=== PATIENT | male | born 1985 ===

== ENCOUNTER 2021-05-16 00:46 | Inpatient (IN) | payer SELFPAY ==
[2021-05-16] MEDS ORDERED: ONDANSETRON 4 MG/2 ML INJ IV ONE (01:10)
--- NOTE | 2021-05-16 01:14 | Emergency Department Report ---
ED Abdominal Pain HPI - General Chief Complaint: Abdominal Pain Stated Complaint: ABDOMINAL PAIN Time Seen by Provider: 05/16/21 01:08 Source: patient, EMS Mode of arrival: Stretcher Limitations: No Limitations - History of Present Illness Initial Comments: Patient is 35-year-old male with recent history of pancreatitis. Patient brought to the emergency room via EMS from home for evaluation of abdominal pain. Minimal epigastric with radiation to the back. Patient describes his pain as sharp. He stated that he has some nausea but no vomiting. The patient denied any fever or chills. No chest pain or shortness of breath. MD Complaint: abdominal pain -: hour(s) (2) Location: epigastric Radiation: back Migration to: no migration Severity scale (0 -10): 10 Quality: sharp Associated Symptoms: denies other symptoms - Related Data Allergies Allergy/AdvReac Type Severity Reaction Status Date / Time No Known Allergies Allergy Unverified 05/16/21 01:25 ED Review of Systems ROS: Stated complaint: ABDOMINAL PAIN Other details as noted in HPI Comment: All other systems reviewed and negative Constitutional: denies: chills, fever Respiratory: denies: cough, shortness of breath, SOB with exertion, SOB at rest Cardiovascular: denies: chest pain, palpitations, dyspnea on exertion Gastrointestinal: abdominal pain, nausea. denies: vomiting, diarrhea, constipation, hematemesis, melena, hematochezia Musculoskeletal: denies: back pain Neurological: denies: headache, weakness, numbness, paresthesias, confusion ED Physical Exam - General Limitations: No Limitations General appearance: alert, in no apparent distress - Head Head exam: Present: atraumatic, normocephalic, normal inspection - Eye Eye exam: Present: normal appearance - ENT ENT exam: Present: normal exam, normal orophraynx, mucous membranes moist - Neck Neck exam: Present: normal inspection, full ROM. Absent: tenderness, meningismus - Respiratory Respiratory exam: Present: normal lung sounds bilaterally - Cardiovascular Cardiovascular Exam: Present: tachycardia - GI/Abdominal GI/Abdominal exam: Present: soft, tenderness, normal bowel sounds. Absent: distended, guarding, rebound, rigid, organomegaly, mass, bruit, pulsatile mass, hernia - Extremities Exam Extremities exam: Present: normal inspection, full ROM, normal capillary refill. Absent: tenderness - Back Exam Back exam: Present: normal inspection, full ROM. Absent: CVA tenderness (R), CVA tenderness (L) - Neurological Exam Neurological exam: Present: alert, oriented X3, CN II-XII intact - Psychiatric Psychiatric exam: Present: normal mood - Skin Skin exam: Present: warm, intact, normal color ED Course Vital Signs 05/16/21 05/16/21 00:55 01:00 Temperature 98.9 F Pulse Rate 123 H Respiratory 20 Rate Blood Pressure 149/91 [Right] O2 Sat by Pulse 100 100 Oximetry ED Medical Decision Making - Lab Data Result diagrams: 05/16/21 01:20 05/16/21 01:20 - Radiology Data Radiology results: report reviewed - Medical Decision Making Patient is 35-year-old male with recent history of pancreatitis. Patient brought to the emergency room via EMS from home for evaluation of abdominal pain. Minimal epigastric with radiation to the back. Patient describes his pain as sharp. He stated that he has some nausea but no vomiting. The patient denied any fever or chills. No chest pain or shortness of breath. Patient received multiple pain medication including morphine and Dilaudid. Labs reviewed and showed a leukocytosis of 34,000. CT abdomen and pelvis with IV contrast showed pancreatitis with pseudocyst. I discussed the patient with Dr. Antoine, she stated that she will see the patient. I discussed the patient also with Dr. Kincaid, he agreed to admit the patient to medical service for further management. Critical care attestation.: If time is entered above; I have spent that time in minutes in the direct care of this critically ill patient, excluding procedure time. ED Disposition Clinical Impression: Acute pancreatitis, Infected pseudocyst of pancreas Disposition: ADMITTED INPATIENT Is pt being admited?: Yes Condition: Stable
[2021-05-16] MEDS: SODIUM CHLORIDE 0.9% 1000 ML 1,000 ML IV ONE ×2 (01:34→08:00)
[2021-05-16] MEDS: MORPHINE 4 MG/1 ML INJ IV ONE ×2 (01:34→08:29)
[2021-05-16 01:44] LABS: Hematocrit 39.7 % (35.5-45.6); Hemoglobin 12.8 gm/dl (11.8-15.2); Mean Corpuscular HGB Conc 32 % (32-34); Mean Corpuscular Volume 94 fl (84-94); Platelet Count 732 K/mm3 (140-440); Red Blood Count 4.22 M/mm3 (3.65-5.03); Red Cell Distribution Width 13.7 % (13.2-15.2)
[2021-05-16] MEDS ORDERED: fentaNYL 250 MCG/5 ML INJ IV ONE (01:48)
[2021-05-16] MEDS ORDERED: fentaNYL 100 MCG/2 ML INJ IV NR (02:00)
[2021-05-16 02:09] LABS: Alanine Aminotransferase 24 units/L (7-56); Albumin 4.2 g/dL (3.9-5); BUN/Creatinine Ratio 18; Bilirubin,Direct 0.2 mg/dL (0-0.2); Blood Urea Nitrogen 22 mg/dL (9-20); Calcium 10.2 mg/dL (8.4-10.2); Hemolysis Index 3
[2021-05-16] MEDS: PIPERACILLIN/TAZOBACTAM 3.375 3.375 GM/50 ML BAG IV ONE ×2 (02:42→08:01)
[2021-05-16] MEDS: PANTOPRAZOLE 40 MG INJ IV ONE ×2 (02:42→08:01)
[2021-05-16] MEDS: HYDROmorphone 1 MG/1 ML INJ IV ONE ×2 (02:42→08:31)
[2021-05-16 03:11] LABS: Basophils % (Manual) 0 % (0.0-1.8); Eosinophils % (Manual) 0 % (0.0-4.3); Total Cells Counted 100
[2021-05-16 03:12] LABS: Anisocytosis Few; Large Platelets Few; Platelet Clumps Rare; Platelet Estimate Appears Increased
[2021-05-16] MEDS ORDERED: HYDROmorphone 1 MG/1 ML INJ IV ONE (03:13)
--- NOTE | 2021-05-16 04:10 | Cat Scan Report ---
CT ABDOMEN AND PELVIS WITH CONTRAST INDICATION / CLINICAL INFORMATION: Pt complains of epigastric abdominal pain. TECHNIQUE: Axial CT images were obtained through the abdomen and pelvis after 100 cc Omnipaque [address] scans at this location are performed using CT dose reduction for ALARA by means of automated exposure control. COMPARISON: None available. FINDINGS: LOWER CHEST: Small dependent left pleural effusion. Dependent atelectatic changes bilaterally. LIVER: Small amount of perihepatic ascites. No focal liver lesion. Portal vein is patent. GALLBLADDER: No significant abnormality. BILE DUCTS: No significant abnormality. SPLEEN: Small amount of perisplenic ascites. Spleen normal in size without focal lesion. PANCREAS: The pancreas demonstrates a moderate amount of peripancreatic fat stranding as well as an a essie of diminished attenuation within the proximal body. Pancreatic necrosis not excluded. Large perip ancreatic fluid collections are present encapsulated by a thin wall. This collection measures 9.5 cm transverse dimension, 4 cm oblique AP dimension, and 5.6 cm craniocaudal dimension. Some areas of int ermediate attenuation are present within the collection. A peripheral focus of increased attenuation along the posterior wall image #61 could reflect acute blood products. Additionally within the pancre atic head and uncinate process, there are regions of hypoattenuation. Additional stranding and fluid extend along the pancreatic head and in the region of the second portion of the duodenum. ADRENALS: No significant abnormality. RIGHT KIDNEY / URETER: No significant abnormality. LEFT KIDNEY / URETER: No significant abnormality. STOMACH / DUODENUM / SMALL BOWEL: Stomach demonstrates no focal abnormality. Second portion of the du odenum demonstrates areas of suggested wall thickening and periserosal fat stranding. Additionally, p roximal jejunum in the region of the above-described fluid collection are borderline in size. COLON: No significant abnormality. APPENDIX: No. Off fluid collection extends within the left paracolic gutter Additional fluid is prese nt dependently within the pelvis. LYMPH NODES: Enlarged perigastric lymph nodes measure up to 13 mm short axis. Additional enlarged mes enteric lymph nodes measured 12 mm up to 18 mm short axis. AORTA / ARTERIES: No significant abnormality. IVC / VEINS: No significant abnormality. URINARY BLADDER: No significant abnormality. REPRODUCTIVE ORGANS: No significant abnormality. ADDITIONAL ABDOMINAL/PELVIC FINDINGS: None. SKELETAL SYSTEM: No significant abnormality. IMPRESSION: 1. The appearance of the pancreas is compatible with acute pancreatitis with moderately large loculat ed fluid collections compatible with pseudocyst formation with loculated fluid collections extending along the posterior margin of the stomach as well as left paracolic gutter. In addition a pseudocyst, hematoma and/or sequelae of hemorrhagic pancreatitis could be considered given the intermediate atte nuation within. 2. Wall thickening in the second portion of the duodenum is likely reflect sequelae of adjacent pancr eatitis. 3. Ill-defined region of hypoattenuation within the pancreatic head/uncinate process may reflect toby tional inflammatory change, small hypoattenuating mass not excluded. Signer Name: Freddy Oh II, MD Signed: 05/16/2021 4:05 AM Workstation Name: [id number]
[2021-05-16] MEDS ORDERED: ACETAMINOPHEN 325 MG TAB PO PRN (05:09)
[2021-05-16] MEDS ORDERED: ALBUTEROL 2.5 MG/3 ML NEBU IH PRN (05:09)
[2021-05-16] MEDS ORDERED: LORazepam 2 MG/ML VIAL IV PRN (05:09)
[2021-05-16] MEDS ORDERED: ONDANSETRON 4 MG/2 ML INJ IV PRN (05:09)
[2021-05-16] MEDS: HYDROmorphone 1 MG/1 ML INJ IM ONE ×2 (05:12→08:31)
--- NOTE | 2021-05-16 05:17 | History and Physical Report ---
History of Present Illness Date of examination: 05/16/21 Date of admission: 05/16/21 Chief complaint: Abdominal pain History of present illness: 35-year-old male with recent history of pancreatitis and alcohol abuse was brought to the emergency room because of abdominal pain. Patient complaining of epigastric pain 10/10 with radiation to the back. Patient describes his pain as sharp. He stated that he has some nausea but no vomiting. The patient denied any fever or chills. No chest pain or shortness of breath. Labs reviewed and showed a leukocytosis of 34,000. CT abdomen and pelvis with IV contrast showed pancreatitis with pseudocyst. case discussed the patient with Dr. Antoine will see the patient. We also put the patient on Zosyn 4.5 g IV every 8 hours and banana bag Past History Past Medical History: other (Pancreatitis and alcohol abuse) Social history: alcohol abuse Medications and Allergies Allergies Allergy/AdvReac Type Severity Reaction Status Date / Time No Known Allergies Allergy Unverified 05/16/21 01:25 Review of Systems Gastrointestinal: abdominal pain, nausea, vomiting Exam - Constitutional Vitals: Temp Pulse Resp BP Pulse Ox 98.9 F 123 H 20 149/91 100 05/16/21 00:55 05/16/21 00:55 05/16/21 00:55 05/16/21 00:55 05/16/21 01:00 General appearance: Present: no acute distress, well-nourished - EENT Eyes: Present: PERRL ENT: hearing intact, clear oral mucosa - Neck Neck: Present: supple, normal ROM - Respiratory Respiratory effort: normal Respiratory: bilateral: diminished - Cardiovascular Heart Sounds: Present: S1 & S2. Absent: rub, click - Extremities Extremities: pulses symmetrical, No edema Peripheral Pulses: within normal limits - Abdominal General gastrointestinal: Present: soft, tender, non-distended, normal bowel sounds Male genitourinary: Present: normal - Integumentary Integumentary: Present: clear, warm, dry - Musculoskeletal Musculoskeletal: gait normal, strength equal bilaterally - Psychiatric Psychiatric: appropriate mood/affect, intact judgment & insight - Neurologic Neurologic: CNII-XII intact, moves all extremities Results - Labs CBC & Chem 7: 05/16/21 01:20 05/16/21 01:20 Labs: Laboratory Last Values WBC 34.4 K/mm3 (4.5-11.0) H 05/16/21 01:20 RBC 4.22 M/mm3 (3.65-5.03) 05/16/21 01:20 Hgb 12.8 gm/dl (11.8-15.2) 05/16/21 01:20 Hct 39.7 % (35.5-45.6) 05/16/21 01:20 MCV 94 fl (84-94) 05/16/21 01:20 MCH 30 pg (28-32) 05/16/21 01:20 MCHC 32 % (32-34) 05/16/21 01:20 RDW 13.7 % (13.2-15.2) 05/16/21 01:20 Plt Count 732 K/mm3 (140-440) H 05/16/21 01:20 Add Manual Diff Complete 05/16/21 01:20 Total Counted 100 05/16/21 01:20 Seg Neutrophils % Mortar Maker 05/16/21 01:20 Seg Neuts % (Manual) 95.0 % (40.0-70.0) H 05/16/21 01:20 Band Neutrophils % 0 % 05/16/21 01:20 Lymphocytes % (Manual) 4.0 % (13.4-35.0) L 05/16/21 01:20 Reactive Lymphs % (Man) 0 % 05/16/21 01:20 Monocytes % (Manual) 1.0 % (0.0-7.3) 05/16/21 01:20 Eosinophils % (Manual) 0 % (0.0-4.3) 05/16/21 01:20 Basophils % (Manual) 0 % (0.0-1.8) 05/16/21 01:20 Metamyelocytes % 0 % 05/16/21 01:20 Myelocytes % 0 % 05/16/21 01:20 Promyelocytes % 0 % 05/16/21 01:20 Blast Cells % 0 % 05/16/21 01:20 Nucleated RBC % Not Reportable 05/16/21 01:20 Seg Neutrophils # Man 32.7 K/mm3 (1.8-7.7) H 05/16/21 01:20 Band Neutrophils # 0.0 K/mm3 05/16/21 01:20 Lymphocytes # (Manual) 1.4 K/mm3 (1.2-5.4) 05/16/21 01:20 Abs React Lymphs (Man) 0.0 K/mm3 05/16/21 01:20 Monocytes # (Manual) 0.3 K/mm3 (0.0-0.8) 05/16/21 01:20 Eosinophils # (Manual) 0.0 K/mm3 (0.0-0.4) 05/16/21 01:20 Basophils # (Manual) 0.0 K/mm3 (0.0-0.1) 05/16/21 01:20 Metamyelocytes # 0.0 K/mm3 05/16/21 01:20 Myelocytes # 0.0 K/mm3 05/16/21 01:20 Promyelocytes # 0.0 K/mm3 05/16/21 01:20 Blast Cells # 0.0 K/mm3 05/16/21 01:20 WBC Morphology Not Reportable 05/16/21 01:20 Hypersegmented Neuts Not Reportable 05/16/21 01:20 Hyposegmented Neuts Not Reportable 05/16/21 01:20 Hypogranular Neuts Not Reportable 05/16/21 01:20 Smudge Cells Not Reportable 05/16/21 01:20 Toxic Granulation Not Reportable 05/16/21 01:20 Toxic Vacuolation Not Reportable 05/16/21 01:20 Dohle Bodies Not Reportable 05/16/21 01:20 Pelger-Huet Anomaly Not Reportable 05/16/21 01:20 Jagdish Rods Not Reportable 05/16/21 01:20 Platelet Estimate Appears increased 05/16/21 01:20 Clumped Platelets Rare 05/16/21 01:20 Plt Clumps, EDTA Not Reportable 05/16/21 01:20 Large Platelets Few 05/16/21 01:20 Giant Platelets Not Reportable 05/16/21 01:20 Platelet Satelliting Not Reportable 05/16/21 01:20 Plt Morphology Comment Not Reportable 05/16/21 01:20 RBC Morphology Not Reportable 05/16/21 01:20 Dimorphic RBCs Not Reportable 05/16/21 01:20 Polychromasia Not Reportable 05/16/21 01:20 Hypochromasia Not Reportable 05/16/21 01:20 Poikilocytosis Not Reportable 05/16/21 01:20 Anisocytosis Few 05/16/21 01:20 Microcytosis Not Reportable 05/16/21 01:20 Macrocytosis Not Reportable 05/16/21 01:20 Spherocytes Not Reportable 05/16/21 01:20 Pappenheimer Bodies Not Reportable 05/16/21 01:20 Sickle Cells Not Reportable 05/16/21 01:20 Target Cells Not Reportable 05/16/21 01:20 Tear Drop Cells Not Reportable 05/16/21 01:20 Ovalocytes Not Reportable 05/16/21 01:20 Helmet Cells Not Reportable 05/16/21 01:20 [place] Bodies Not Reportable 05/16/21 01:20 [place] Rings Not Reportable 05/16/21 01:20 [place] Cells Not Reportable 05/16/21 01:20 Bite Cells Not Reportable 05/16/21 01:20 Crenated Cell Not Reportable 05/16/21 01:20 Elliptocytes Not Reportable 05/16/21 01:20 Acanthocytes (Spur) Not Reportable 05/16/21 01:20 Rouleaux Not Reportable 05/16/21 01:20 Hemoglobin C Crystals Not Reportable 05/16/21 01:20 Schistocytes Not Reportable 05/16/21 01:20 Malaria parasites Not Reportable 05/16/21 01:20 Everardo Bodies Not Reportable 05/16/21 01:20 Hem Pathologist Commnt No 05/16/21 01:20 Sodium 139 mmol/L (137-145) 05/16/21 01:20 Potassium 5.2 mmol/L (3.6-5.0) H 05/16/21 01:20 Chloride 99.8 mmol/L (98-107) 05/16/21 01:20 Carbon Dioxide 21 mmol/L (22-30) L 05/16/21 01:20 Anion Gap 23 mmol/L 05/16/21 01:20 BUN 22 mg/dL (9-20) H 05/16/21 01:20 Creatinine 1.2 mg/dL (0.8-1.3) 05/16/21 01:20 Estimated GFR > 60 ml/min 05/16/21 01:20 BUN/Creatinine Ratio 18 % 05/16/21 01:20 Glucose 136 mg/dL (75-100) H 05/16/21 01:20 Calcium 10.2 mg/dL (8.4-10.2) 05/16/21 01:20 Total Bilirubin 0.60 mg/dL (0.1-1.2) 05/16/21 01:20 Direct Bilirubin 0.2 mg/dL (0-0.2) 05/16/21 01:20 Indirect Bilirubin 0.4 mg/dL 05/16/21 01:20 AST 32 units/L (5-40) 05/16/21 01:20 ALT 24 units/L (7-56) 05/16/21 01:20 Alkaline Phosphatase 160 units/L (35-129) H 05/16/21 01:20 Total Protein 7.9 g/dL (6.3-8.2) 05/16/21 01:20 Albumin 4.2 g/dL (3.9-5) 05/16/21 01:20 Albumin/Globulin Ratio 1.1 % 05/16/21 01:20 Lipase 139 units/L (13-60) H 05/16/21 01:20 Plasma/Serum Alcohol < 0.01 % (0-0.07) 05/16/21 01:20 - Imaging and Cardiology CT scan - abdomen: report reviewed Assessment and Plan VTE prophylaxis?: Mechanical Plan of care discussed with patient/family: Yes - Patient Problems (1) Acute pancreatitis Status: Acute Plan to address problem: Admit the patient to the medical floor. NPO. D5 half-normal saline at the rate of 100 cc/h. Pepcid 20 mg IV every 12 hours. Reconsult surgery for evaluation. Patient counseled regarding quit drinking (2) Abdominal pain Status: Acute Plan to address problem: NPO. D5 half-normal saline at the rate of 100 cc/h. Pepcid 20 mg IV every 12 hours. Morphine 2 mg IV every 4 hours as needed (3) Alcohol abuse Status: Acute Plan to address problem: We counseled the patient regarding quit drinking. We put the patient on thiamine folic acid and banana bag (4) Infected pseudocyst of pancreas Status: Acute Plan to address problem: NPO. D5 half-normal saline at the rate of 100 cc/h. Pepcid 20 mg IV every 12 hours. Zosyn 4.5 g IV every 8 hours. consult surgery for evaluation. Patient counseled regarding quit drinking (5) DVT prophylaxis Status: Acute Plan to address problem: SCD for DVT prophylaxis. Pepcid 20 mg IV every 12 hours for GI prophylaxis. Patient is a full code
[2021-05-16] MEDS: THIAMINE 100 MG, FOLIC ACID 1 MG, MULTIPLE VITAMIN INJ, ADULT 10 ML in SODIUM CHLORIDE ... IV ONE ×2 (05:57→08:30)
[2021-05-16] MEDS: HYDROmorphone 1 MG/1 ML INJ IV PRN ×3 (08:07→21:24)
--- NOTE | 2021-05-16 09:27 | Gastroenterology Consultation ---
History of Present Illness - Reason for Consult Consult date: 05/16/21 Pancreatitis Requesting physician: ANIL VENTURA - History of Present Illness Is a pleasant 35-year-old gentleman history of pancreatitis and alcohol abuse who came into emergency room complaining of of severe abdominal pain. Epigastric. Sharp. Radiating to the back. Associated with nausea. Constant. Worsening. had recent hospitalization at [facility], chart reviewed went there yesterday with WBC just above normal was building a deck when symptoms started no more etoh Patient with leukocytosis and CT abdomen and pelvis with IV contrast showed pancreatitis with pseudocyst. Obtained/updated/reviewed patient's current medications Past History Past Medical History: other (Pancreatitis and alcohol abuse) Past Surgical History: No surgical history Social history: alcohol abuse Family history: no significant family history Medications and Allergies Allergies Allergy/AdvReac Type Severity Reaction Status Date / Time No Known Allergies Allergy Verified 05/16/21 10:07 Home Medications Medication Instructions Recorded Confirmed Last Taken Type Folic Acid 1 mg PO QDAY 05/16/21 05/16/21 Unknown History Mecobalamin [B12 Active] 1,000 mcg PO QDAY 05/16/21 05/16/21 Unknown History amLODIPine [Norvasc] 5 mg PO DAILY 05/16/21 05/16/21 Unknown History cloNIDine-TTS PATCH [Catapres-Tts 1 patch TD Q7D 05/16/21 05/16/21 Unknown History 0.1MG Patch] Active Meds: Active Medications Acetaminophen (Acetaminophen 325 Mg Tab) 650 mg PO Q4H PRN PRN Reason: Pain MILD(1-3)/Fever >100.5/LANE Albuterol (Albuterol 2.5 Mg/3 Ml Nebu) 2.5 mg IH Q3HRT PRN PRN Reason: Shortness Of Breath Albuterol/Ipratropium (Ipratropium/Albuterol Sulfate 3 Ml Ampul.Neb) 1 ampul IH Q6HRT DEV Famotidine (Famotidine 20 Mg/2 Ml Inj) 20 mg IV BID DEV Hydromorphone HCl (Hydromorphone 1 Mg/1 Ml Inj) 0.5 mg IV Q3H PRN PRN Reason: Pain , Severe (7-10) Last Admin: 05/16/21 08:07 Dose: 0.5 mg Dextrose/Sodium Chloride (D5/0.45ns) 1,000 mls @ 100 mls/hr IV DIRECT DEV Thiamine HCl 100 mg/ Folic Acid 1 mg/ Multivitamins/Minerals 10 ml/ Sodium Chloride 1,011.2 mls @ 250 mls/hr IV DAILY ONE Stop: 05/16/21 10:02 Last Admin: 05/16/21 08:30 Dose: Not Given Piperacillin Sod/Tazobactam Sod (Zosyn/Ns 4.5gm/100ml) 4.5 gm in 100 mls @ 200 mls/hr IV Q8H DEV; Protocol Lorazepam (Lorazepam 2 Mg/Ml Vial) 2 mg IV Q1H PRN PRN Reason: CIWA-Ar 8-15 Morphine Sulfate (Morphine 2 Mg/1 Ml Inj) 2 mg IV Q4H PRN PRN Reason: Pain, Moderate (4-6) Ondansetron HCl (Ondansetron 4 Mg/2 Ml Inj) 4 mg IV Q8H PRN PRN Reason: Nausea And Vomiting Sodium Chloride (Sodium Chloride 0.9% 10 Ml Flush Syringe) 10 ml IV BID DEV Sodium Chloride (Sodium Chloride 0.9% 10 Ml Flush Syringe) 10 ml IV PRN PRN PRN Reason: LINE FLUSH Review of Systems - Review of Systems All systems: negative (10 Systems reviewed and negative except as mentioned above in the history of present illness) Exam - Constitutional Vital Signs: Temp Pulse Resp BP Pulse Ox 98.0 F 122 H 20 128/80 95 05/16/21 08:06 05/16/21 08:06 05/16/21 08:06 05/16/21 08:06 05/16/21 08:06 General appearance: no acute distress - EENT Eyes: EOM intact - Neck Neck: supple - Respiratory Respiratory effort: normal - Cardiovascular Rhythm: regular - Gastrointestinal General gastrointestinal: Present: soft, tender - Integumentary Integumentary: Present: dry - Musculoskeletal Musculoskeletal: normal - Neurologic Neurological: alert and oriented x3 - Psychiatric Psychiatric: appropriate mood/affect - Labs CBC & Chem 7: 05/16/21 11:02 05/16/21 01:20 Lab Results: Laboratory Results - last 24 hr 05/16/21 05/16/21 05/16/21 01:20 01:20 01:20 WBC 34.4 H RBC 4.22 Hgb 12.8 Hct 39.7 MCV 94 MCH 30 MCHC 32 RDW 13.7 Plt Count 732 H Add Manual Diff Complete Total Counted 100 Seg Neutrophils % Food Quality Technician Seg Neuts % (Manual) 95.0 H Band Neutrophils % 0 Lymphocytes % (Manual) 4.0 L Reactive Lymphs % (Man) 0 Monocytes % (Manual) 1.0 Eosinophils % (Manual) 0 Basophils % (Manual) 0 Metamyelocytes % 0 Myelocytes % 0 Promyelocytes % 0 Blast Cells % 0 Nucleated RBC % Not Reportable Seg Neutrophils # Man 32.7 H Band Neutrophils # 0.0 Lymphocytes # (Manual) 1.4 Abs React Lymphs (Man) 0.0 Monocytes # (Manual) 0.3 Eosinophils # (Manual) 0.0 Basophils # (Manual) 0.0 Metamyelocytes # 0.0 Myelocytes # 0.0 Promyelocytes # 0.0 Blast Cells # 0.0 WBC Morphology Not Reportable Hypersegmented Neuts Not Reportable Hyposegmented Neuts Not Reportable Hypogranular Neuts Not Reportable Smudge Cells Not Reportable Toxic Granulation Not Reportable Toxic Vacuolation Not Reportable Dohle Bodies Not Reportable Pelger-Huet Anomaly Not Reportable Jagdish Rods Not Reportable Platelet Estimate Appears increased Clumped Platelets Rare Plt Clumps, EDTA Not Reportable Large Platelets Few Giant Platelets Not Reportable Platelet Satelliting Not Reportable Plt Morphology Comment Not Reportable RBC Morphology Not Reportable Dimorphic RBCs Not Reportable Polychromasia Not Reportable Hypochromasia Not Reportable Poikilocytosis Not Reportable Anisocytosis Few Microcytosis Not Reportable Macrocytosis Not Reportable Spherocytes Not Reportable Pappenheimer Bodies Not Reportable Sickle Cells Not Reportable Target Cells Not Reportable Tear Drop Cells Not Reportable Ovalocytes Not Reportable Helmet Cells Not Reportable [place] Bodies Not Reportable [place] Rings Not Reportable Neil Cells Not Reportable Bite Cells Not Reportable Crenated Cell Not Reportable Elliptocytes Not Reportable Acanthocytes (Spur) Not Reportable Rouleaux Not Reportable Hemoglobin C Crystals Not Reportable Schistocytes Not Reportable Malaria parasites Not Reportable Everardo Bodies Not Reportable Hem Pathologist Commnt No Sodium 139 Potassium 5.2 H Chloride 99.8 Carbon Dioxide 21 L Anion Gap 23 BUN 22 H Creatinine 1.2 Estimated GFR > 60 BUN/Creatinine Ratio 18 Glucose 136 H Calcium 10.2 Total Bilirubin 0.60 Direct Bilirubin 0.2 Indirect Bilirubin 0.4 AST 32 ALT 24 Alkaline Phosphatase 160 H Total Protein 7.9 Albumin 4.2 Albumin/Globulin Ratio 1.1 Lipase 139 H Plasma/Serum Alcohol < 0.01 Assessment and Plan higher on ddx hemorrhage vs regular pseudocyst, patient clinically looks well and suspect elevated wbc false, so repeat CBC and trend WBC and Hgb If the white count remains significantly elevated start imipenem for possible infected pancreatic necrosis. However repeat WBC is nearly normal then would hold off on antibiotics. Trend hemoglobin for possibility of hemorrhagic pancreatitis plan relayed to hospitalist - Patient Problems (1) Abdominal pain Current Visit: No Status: Acute (2) Acute pancreatitis Current Visit: No Status: Inactive
[2021-05-16] MEDS: IPRATROPIUM/ALBUTEROL SULFATE 3 ML AMPUL.NEB IH SCH ×3 (10:05→21:24)
[2021-05-16] MEDS: D5W/0.45% NACL 1,000 ML IV SCH (10:21)
[2021-05-16] MEDS: FAMOTIDINE 20 MG/2 ML INJ IV SCH ×2 (10:21→21:25)
--- NOTE | 2021-05-16 10:42 | Progress Note ---
Assessment and Plan Assessment and plan: -- Acute pancreatitis Status: Acute NPO. D5 half-normal saline at the rate of 100 cc/h. Pepcid 20 mg IV every 12 hours. Patient has chronic alcohol use, follow GI evaluation and recommendations -- Abdominal pain Status: Acute Due to acute pancreatitis/infected pseudocyst pancreas Continue IV fluids, n.p.o. status, IV antibiotics and pain medications Follow GI and surgery evaluation and recommendations Pepcid 20 mg IV every 12 hours --History of chronic alcohol abuse Status: Chronic IV fluids, thiamine and folic acid Closely monitor for alcohol withdrawal symptoms Initiate CIWA protocol Strongly advised to quit alcohol intake --Infected pseudocyst of pancreas Status: Acute NPO. D5 half-normal saline at the rate of 100 cc/h. Pepcid 20 mg IV every 12 hours. Zosyn 4.5 g IV every 8 hours. Follow GI and surgical evaluation -- DVT prophylaxis; Placement Status: Acute SCD for DVT prophylaxis. Closely monitor patient and adjust the management as needed Prolonged care 35 minutes Advance care plan: I discussed in detail patient's condition, patient's diagnosis, I discussed findings on imaging studies Discussed with the patient laboratory data, informed the patient that GI and surgery evaluating Treatment plan discussed in detail, n.p.o. status, IV fluids, IV antibiotics, IV Protonix, CIWA protocol If any withdrawal symptoms are noted, patient had many questions, answered all of them Patient verbalized understanding. Additional care +32 minutes. I also discussed with the girlfriend/significant other at the bedside History Interval history: I have seen and examined the patient at the bedside Patient's chart and medications reviewed Patient's girlfriend/significant other at the bedside Patient complains of abdominal pain and discomfort N.p.o. status Hospitalist Physical - Constitutional Vitals: Temp Pulse Resp BP Pulse Ox 98.0 F 122 H 20 128/80 95 05/16/21 08:06 05/16/21 08:06 05/16/21 08:06 05/16/21 08:06 05/16/21 08:06 General appearance: Present: no acute distress, mild distress - EENT Eyes: Present: PERRL, EOM intact - Neck Neck: Present: supple, normal ROM - Respiratory Respiratory effort: normal Respiratory: bilateral: diminished, negative: rales, rhonchi, wheezing - Cardiovascular Rhythm: regular Heart Sounds: Present: S1 & S2 - Extremities Extremities: no ischemia, No edema - Abdominal General gastrointestinal: soft, tender (All over abdomen, guarding, ), distended (Mild), normal bowel sounds - Integumentary Integumentary: Present: clear, warm - Psychiatric Psychiatric: appropriate mood/affect, cooperative - Neurologic Neurologic: moves all extremities Results - Labs CBC & Chem 7: 05/16/21 11:02 05/16/21 01:20 Labs: Laboratory Last Values WBC 34.4 K/mm3 (4.5-11.0) H 05/16/21 01:20 RBC 4.22 M/mm3 (3.65-5.03) 05/16/21 01:20 Hgb 12.8 gm/dl (11.8-15.2) 05/16/21 01:20 Hct 39.7 % (35.5-45.6) 05/16/21 01:20 MCV 94 fl (84-94) 05/16/21 01:20 MCH 30 pg (28-32) 05/16/21 01:20 MCHC 32 % (32-34) 05/16/21 01:20 RDW 13.7 % (13.2-15.2) 05/16/21 01:20 Plt Count 732 K/mm3 (140-440) H 05/16/21 01:20 Add Manual Diff Complete 05/16/21 01:20 Total Counted 100 05/16/21 01:20 Seg Neutrophils % Photographer Scientific 05/16/21 01:20 Seg Neuts % (Manual) 95.0 % (40.0-70.0) H 05/16/21 01:20 Band Neutrophils % 0 % 05/16/21 01:20 Lymphocytes % (Manual) 4.0 % (13.4-35.0) L 05/16/21 01:20 Reactive Lymphs % (Man) 0 % 05/16/21 01:20 Monocytes % (Manual) 1.0 % (0.0-7.3) 05/16/21 01:20 Eosinophils % (Manual) 0 % (0.0-4.3) 05/16/21 01:20 Basophils % (Manual) 0 % (0.0-1.8) 05/16/21 01:20 Metamyelocytes % 0 % 05/16/21 01:20 Myelocytes % 0 % 05/16/21 01:20 Promyelocytes % 0 % 05/16/21 01:20 Blast Cells % 0 % 05/16/21 01:20 Nucleated RBC % Not Reportable 05/16/21 01:20 Seg Neutrophils # Man 32.7 K/mm3 (1.8-7.7) H 05/16/21 01:20 Band Neutrophils # 0.0 K/mm3 05/16/21 01:20 Lymphocytes # (Manual) 1.4 K/mm3 (1.2-5.4) 05/16/21 01:20 Abs React Lymphs (Man) 0.0 K/mm3 05/16/21 01:20 Monocytes # (Manual) 0.3 K/mm3 (0.0-0.8) 05/16/21 01:20 Eosinophils # (Manual) 0.0 K/mm3 (0.0-0.4) 05/16/21 01:20 Basophils # (Manual) 0.0 K/mm3 (0.0-0.1) 05/16/21 01:20 Metamyelocytes # 0.0 K/mm3 05/16/21 01:20 Myelocytes # 0.0 K/mm3 05/16/21 01:20 Promyelocytes # 0.0 K/mm3 05/16/21 01:20 Blast Cells # 0.0 K/mm3 05/16/21 01:20 WBC Morphology Not Reportable 05/16/21 01:20 Hypersegmented Neuts Not Reportable 05/16/21 01:20 Hyposegmented Neuts Not Reportable 05/16/21 01:20 Hypogranular Neuts Not Reportable 05/16/21 01:20 Smudge Cells Not Reportable 05/16/21 01:20 Toxic Granulation Not Reportable 05/16/21 01:20 Toxic Vacuolation Not Reportable 05/16/21 01:20 Dohle Bodies Not Reportable 05/16/21 01:20 Pelger-Huet Anomaly Not Reportable 05/16/21 01:20 Jagdish Rods Not Reportable 05/16/21 01:20 Platelet Estimate Appears increased 05/16/21 01:20 Clumped Platelets Rare 05/16/21 01:20 Plt Clumps, EDTA Not Reportable 05/16/21 01:20 Large Platelets Few 05/16/21 01:20 Giant Platelets Not Reportable 05/16/21 01:20 Platelet Satelliting Not Reportable 05/16/21 01:20 Plt Morphology Comment Not Reportable 05/16/21 01:20 RBC Morphology Not Reportable 05/16/21 01:20 Dimorphic RBCs Not Reportable 05/16/21 01:20 Polychromasia Not Reportable 05/16/21 01:20 Hypochromasia Not Reportable 05/16/21 01:20 Poikilocytosis Not Reportable 05/16/21 01:20 Anisocytosis Few 05/16/21 01:20 Microcytosis Not Reportable 05/16/21 01:20 Macrocytosis Not Reportable 05/16/21 01:20 Spherocytes Not Reportable 05/16/21 01:20 Pappenheimer Bodies Not Reportable 05/16/21 01:20 Sickle Cells Not Reportable 05/16/21 01:20 Target Cells Not Reportable 05/16/21 01:20 Tear Drop Cells Not Reportable 05/16/21 01:20 Ovalocytes Not Reportable 05/16/21 01:20 Helmet Cells Not Reportable 05/16/21 01:20 Nova-Chamberlain Bodies Not Reportable 05/16/21 01:20 [place] Rings Not Reportable 05/16/21 01:20 Neil Cells Not Reportable 05/16/21 01:20 Bite Cells Not Reportable 05/16/21 01:20 Crenated Cell Not Reportable 05/16/21 01:20 Elliptocytes Not Reportable 05/16/21 01:20 Acanthocytes (Spur) Not Reportable 05/16/21 01:20 Rouleaux Not Reportable 05/16/21 01:20 Hemoglobin C Crystals Not Reportable 05/16/21 01:20 Schistocytes Not Reportable 05/16/21 01:20 Malaria parasites Not Reportable 05/16/21 01:20 Everardo Bodies Not Reportable 05/16/21 01:20 Hem Pathologist Commnt No 05/16/21 01:20 Sodium 139 mmol/L (137-145) 05/16/21 01:20 Potassium 5.2 mmol/L (3.6-5.0) H 05/16/21 01:20 Chloride 99.8 mmol/L (98-107) 05/16/21 01:20 Carbon Dioxide 21 mmol/L (22-30) L 05/16/21 01:20 Anion Gap 23 mmol/L 05/16/21 01:20 BUN 22 mg/dL (9-20) H 05/16/21 01:20 Creatinine 1.2 mg/dL (0.8-1.3) 05/16/21 01:20 Estimated GFR > 60 ml/min 05/16/21 01:20 BUN/Creatinine Ratio 18 % 05/16/21 01:20 Glucose 136 mg/dL (75-100) H 05/16/21 01:20 Calcium 10.2 mg/dL (8.4-10.2) 05/16/21 01:20 Total Bilirubin 0.60 mg/dL (0.1-1.2) 05/16/21 01:20 Direct Bilirubin 0.2 mg/dL (0-0.2) 05/16/21 01:20 Indirect Bilirubin 0.4 mg/dL 05/16/21 01:20 AST 32 units/L (5-40) 05/16/21 01:20 ALT 24 units/L (7-56) 05/16/21 01:20 Alkaline Phosphatase 160 units/L (35-129) H 05/16/21 01:20 Total Protein 7.9 g/dL (6.3-8.2) 05/16/21 01:20 Albumin 4.2 g/dL (3.9-5) 05/16/21 01:20 Albumin/Globulin Ratio 1.1 % 05/16/21 01:20 Lipase 139 units/L (13-60) H 05/16/21 01:20 Plasma/Serum Alcohol < 0.01 % (0-0.07) 05/16/21 01:20 Active Medications - Current Medications Current Medications: Generic Name Dose Route Start Last Admin Trade Name Freq PRN Reason Stop Dose Admin Acetaminophen 650 mg 05/16/21 05:09 Acetaminophen 325 Mg Tab PO Q4H PRN Pain MILD(1-3)/Fever >100.5/LANE Albuterol 2.5 mg 05/16/21 05:09 Albuterol 2.5 Mg/3 Ml Nebu IH Q3HRT PRN Shortness Of Breath Albuterol/Ipratropium 1 ampul 05/16/21 08:00 05/16/21 10:05 Ipratropium/Albuterol Sulfate 3 Ml Ampul.Neb IH Not Given Q6HRT DEV Famotidine 20 mg 05/16/21 10:00 05/16/21 10:21 Famotidine 20 Mg/2 Ml Inj IV 20 mg BID DEV Administration Hydromorphone HCl 0.5 mg 05/16/21 05:09 05/16/21 08:07 Hydromorphone 1 Mg/1 Ml Inj IV 0.5 mg Q3H PRN Administration Pain , Severe (7-10) Dextrose/Sodium Chloride 1,000 mls @ 100 mls/hr 05/16/21 06:00 05/16/21 10:21 D5/0.45ns IV 100 mls/hr DIRECT DEV Administration Piperacillin Sod/Tazobactam Sod 4.5 gm in 100 mls @ 200 mls/hr 05/16/21 10:00 Zosyn/Ns 4.5gm/100ml IV Q8H DEV Protocol Lorazepam 2 mg 05/16/21 05:09 Lorazepam 2 Mg/Ml Vial IV Q1H PRN CIWA-Ar 8-15 Morphine Sulfate 2 mg 05/16/21 05:09 Morphine 2 Mg/1 Ml Inj IV Q4H PRN Pain, Moderate (4-6) Ondansetron HCl 4 mg 05/16/21 05:09 Ondansetron 4 Mg/2 Ml Inj IV Q8H PRN Nausea And Vomiting Sodium Chloride 10 ml 05/16/21 10:00 05/16/21 10:21 Sodium Chloride 0.9% 10 Ml Flush Syringe IV 10 ml BID DEV Administration Sodium Chloride 10 ml 05/16/21 05:09 Sodium Chloride 0.9% 10 Ml Flush Syringe IV PRN PRN LINE FLUSH
[2021-05-16] MEDS: MORPHINE 2 MG/1 ML INJ IV PRN ×2 (11:06→19:02)
[2021-05-16 11:21] LABS: Basophils % (Auto) 0.4 % (0.0-1.8); Eosinophils % (Auto) 0.3 % (0.0-4.3); Hemoglobin 11.9 gm/dl (11.8-15.2); Lymphocytes # (Auto) 1.4 K/mm3 (1.2-5.4); Lymphocytes % (Auto) 11.7 % (13.4-35.0); Mean Corpuscular HGB Conc 32 % (32-34); Mean Corpuscular Volume 94 fl (84-94); Monocytes % (Auto) 7.8 % (0.0-7.3); Platelet Count 531 K/mm3 (140-440); Red Blood Count 3.92 M/mm3 (3.65-5.03); Red Cell Distribution Width 13.9 % (13.2-15.2)
[2021-05-16] MEDS: PIPERACIL/TAZOBACTA 4.5/NS 100 4.5 GM/100 ML VIAL IV SCH ×2 (11:59→17:40)
[2021-05-16 13:02] LABS: Amphetamine Screen,Urine Negative; Benzodiazepines Screen,Urine Negative; Cannabinoid Screen,Urine Negative; Cocaine Screen,Urine Negative; Methadone Screen,Urine Negative; Opiate Screen,Urine Negative
[2021-05-16 13:03] LABS: Mucus,Urine FEW /HPF
[2021-05-16 13:12] LABS: Bilirubin,Urine Negative (Negative); Color,Urine Yellow (Yellow)
[2021-05-16 13:13] LABS: Urobilinogen,Urine < 2.0 mg/dL (<2.0)
--- NOTE | 2021-05-16 14:05 | Consultation ---
History of Present Illness Consult date: 05/16/21 Reason for consult: abdominal pain - History of present illness History of present illness: 35-year-old male presents to the emergency room with epigastric pain. He was recently at [facility] for the last 2 weeks with alcoholic pancreatitis. On CT scan in the emergency room here patient has a large pancreatic pseudocyst that was not seen at imaging at [facility]. Patient says that his pain is about a 7-8 out of 10 but he feels slightly better now compared to when he first arrived to the emergency room. He does not have any nausea vomiting at this time. Past History Past Medical History: hypertension, other (Pancreatitis and alcohol abuse) Past Surgical History: No surgical history Social history: alcohol abuse Family history: no significant family history Medications and Allergies Allergies Allergy/AdvReac Type Severity Reaction Status Date / Time No Known Allergies Allergy Verified 05/16/21 10:07 Home Medications Medication Instructions Recorded Confirmed Last Taken Type Folic Acid 1 mg PO QDAY 05/16/21 05/16/21 Unknown History Mecobalamin [B12 Active] 1,000 mcg PO QDAY 05/16/21 05/16/21 Unknown History amLODIPine [Norvasc] 5 mg PO DAILY 05/16/21 05/16/21 Unknown History cloNIDine-TTS PATCH [Catapres-Tts 1 patch TD Q7D 05/16/21 05/16/21 Unknown History 0.1MG Patch] Active Meds: Active Medications Acetaminophen (Acetaminophen 325 Mg Tab) 650 mg PO Q4H PRN PRN Reason: Pain MILD(1-3)/Fever >100.5/LANE Albuterol (Albuterol 2.5 Mg/3 Ml Nebu) 2.5 mg IH Q3HRT PRN PRN Reason: Shortness Of Breath Albuterol/Ipratropium (Ipratropium/Albuterol Sulfate 3 Ml Ampul.Neb) 1 ampul IH Q6HRT [facility] Last Admin: 05/16/21 10:05 Dose: Not Given Amlodipine Besylate (Amlodipine 5 Mg Tab) 5 mg PO DAILY [facility] Famotidine (Famotidine 20 Mg/2 Ml Inj) 20 mg IV BID [facility] Last Admin: 05/16/21 10:21 Dose: 20 mg Folic Acid (Folic Acid 1 Mg Tab) 1 mg PO QDAY [facility] Hydromorphone HCl (Hydromorphone 1 Mg/1 Ml Inj) 0.5 mg IV Q3H PRN PRN Reason: Pain , Severe (7-10) Last Admin: 05/16/21 08:07 Dose: 0.5 mg Dextrose/Sodium Chloride (D5/0.45ns) 1,000 mls @ 100 mls/hr IV DIRECT DEV Last Admin: 05/16/21 10:21 Dose: 100 mls/hr Piperacillin Sod/Tazobactam Sod (Zosyn/Ns 4.5gm/100ml) 4.5 gm in 100 mls @ 200 mls/hr IV Q8H DEV; Protocol Last Admin: 05/16/21 11:59 Dose: 200 mls/hr Lorazepam (Lorazepam 2 Mg/Ml Vial) 2 mg IV Q1H PRN PRN Reason: CIWA-Ar 8-15 Morphine Sulfate (Morphine 2 Mg/1 Ml Inj) 2 mg IV Q4H PRN PRN Reason: Pain, Moderate (4-6) Last Admin: 05/16/21 11:06 Dose: 2 mg Ondansetron HCl (Ondansetron 4 Mg/2 Ml Inj) 4 mg IV Q8H PRN PRN Reason: Nausea And Vomiting Sodium Chloride (Sodium Chloride 0.9% 10 Ml Flush Syringe) 10 ml IV BID [facility] Last Admin: 05/16/21 10:21 Dose: 10 ml Sodium Chloride (Sodium Chloride 0.9% 10 Ml Flush Syringe) 10 ml IV PRN PRN PRN Reason: LINE FLUSH Review of Systems All systems: negative - Gastrointestinal abdominal pain, nausea, no vomiting Exam Vital Signs Temp Pulse Resp BP Pulse Ox 98.9 F 123 H 20 149/91 100 05/16/21 00:55 05/16/21 00:55 05/16/21 00:55 05/16/21 00:55 05/16/21 00:55 - General physical appearance Positive: well developed, no distress, moderate pain - Eyes Positive: PERRL. Negative: icteric - Respiratory Positive: normal expansion, normal respiratory effort - Cardiovascular Heart Sounds: Present: S1 & S2 - Extremities Extremities: no ischemia - Abdomen Abdomen: Present: soft, other (moderate tenderness to palpation in the epigastric area). Absent: distended, rebound, guarding, rigid - Neurologic Neurologic: alert and oriented to time, place and person Results - Labs 05/16/21 11:02 05/16/21 01:20 Abnormal lab results 05/16/21 05/16/21 05/16/21 Range/Units 01:20 01:20 11:02 WBC 34.4 H 12.4 H (4.5-11.0) K/mm3 Plt Count 732 H 531 H (140-440) K/mm3 Lymph % (Auto) 11.7 L (13.4-35.0) % [place] % (Auto) 7.8 H (0.0-7.3) % [place] # (Auto) 1.0 H (0.0-0.8) K/mm3 Seg Neutrophils % 79.8 H (40.0-70.0) % Seg Neuts % (Manual) 95.0 H (40.0-70.0) % Lymphocytes % (Manual) 4.0 L (13.4-35.0) % Seg Neutrophils # 9.9 H (1.8-7.7) K/mm3 Seg Neutrophils # Man 32.7 H (1.8-7.7) K/mm3 Potassium 5.2 H (3.6-5.0) mmol/L Carbon Dioxide 21 L (22-30) mmol/L BUN 22 H (9-20) mg/dL Glucose 136 H (75-100) mg/dL Alkaline Phosphatase 160 H (35-129) units/L Lipase 139 H (13-60) units/L Diabetes panel 05/16/21 Range/Units 01:20 Sodium 139 (137-145) mmol/L Potassium 5.2 H (3.6-5.0) mmol/L Chloride 99.8 (98-107) mmol/L Carbon Dioxide 21 L (22-30) mmol/L BUN 22 H (9-20) mg/dL Creatinine 1.2 (0.8-1.3) mg/dL Glucose 136 H (75-100) mg/dL Calcium 10.2 (8.4-10.2) mg/dL AST 32 (5-40) units/L ALT 24 (7-56) units/L Alkaline Phosphatase 160 H (35-129) units/L Total Protein 7.9 (6.3-8.2) g/dL Albumin 4.2 (3.9-5) g/dL Calcium panel 05/16/21 Range/Units 01:20 Calcium 10.2 (8.4-10.2) mg/dL Albumin 4.2 (3.9-5) g/dL Pituitary panel 05/16/21 Range/Units 01:20 Sodium 139 (137-145) mmol/L Potassium 5.2 H (3.6-5.0) mmol/L Chloride 99.8 (98-107) mmol/L Carbon Dioxide 21 L (22-30) mmol/L BUN 22 H (9-20) mg/dL Creatinine 1.2 (0.8-1.3) mg/dL Glucose 136 H (75-100) mg/dL Calcium 10.2 (8.4-10.2) mg/dL Adrenal panel 05/16/21 Range/Units 01:20 Sodium 139 (137-145) mmol/L Potassium 5.2 H (3.6-5.0) mmol/L Chloride 99.8 (98-107) mmol/L Carbon Dioxide 21 L (22-30) mmol/L BUN 22 H (9-20) mg/dL Creatinine 1.2 (0.8-1.3) mg/dL Glucose 136 H (75-100) mg/dL Calcium 10.2 (8.4-10.2) mg/dL Total Bilirubin 0.60 (0.1-1.2) mg/dL AST 32 (5-40) units/L ALT 24 (7-56) units/L Alkaline Phosphatase 160 H (35-129) units/L Total Protein 7.9 (6.3-8.2) g/dL Albumin 4.2 (3.9-5) g/dL - Imaging CT scan - abdomen: report reviewed, image reviewed CT scan - pelvis: report reviewed, image reviewed Assessment and Plan 35-year-old male with a history of alcohol abuse and alcoholic induced pancreatitis, now with pancreatic pseudocyst. Patient is afebrile and stable. No surgical intervention is indicated at this time. Typically pancreatic pseudocyst are not drained until after they form a thick rind wall which typically takes at least 6 weeks, and are continuing to cause pain or other complication. Patient's white count was 32 on admission is now 12. Unlikely patient has necrotizing pancreatitis. We will continue IV hydration, a ntibiotics, and alcohol cessation. Recommend patient follow-up with GI as an outpatient for further monitoring in the event patient needs pseudocyst drainage which can be done endoscopically, or refer to a tertiary facility with surgical capabilities of performing procedures in the pancreas.
[2021-05-17] MEDS: PIPERACIL/TAZOBACTA 4.5/NS 100 4.5 GM/100 ML VIAL IV SCH ×2 (01:55→09:00)
[2021-05-17] MEDS: D5W/0.45% NACL 1,000 ML IV SCH (01:56)
[2021-05-17] MEDS: IPRATROPIUM/ALBUTEROL SULFATE 3 ML AMPUL.NEB IH SCH ×2 (03:05→07:34)
[2021-05-17] MEDS: HYDROmorphone 1 MG/1 ML INJ IV PRN ×3 (04:14→12:51)
[2021-05-17 05:03] LABS: Basophils % (Auto) 0.3 % (0.0-1.8); Eosinophils # (Auto) 0.2 K/mm3 (0.0-0.4); Eosinophils % (Auto) 1.6 % (0.0-4.3); Lymphocytes # (Auto) 1.4 K/mm3 (1.2-5.4); Lymphocytes % (Auto) 12.3 % (13.4-35.0); Mean Corpuscular HGB Conc 32 % (32-34); Mean Corpuscular Volume 95 fl (84-94); Monocytes % (Auto) 8.7 % (0.0-7.3); Platelet Count 406 K/mm3 (140-440); Red Blood Count 3.59 M/mm3 (3.65-5.03); Red Cell Distribution Width 13.9 % (13.2-15.2)
[2021-05-17 05:21] LABS: Alanine Aminotransferase 13 units/L (7-56); Albumin 3.3 g/dL (3.9-5); BUN/Creatinine Ratio 14; Blood Urea Nitrogen 18 mg/dL (9-20); Hemolysis Index 0
--- NOTE | 2021-05-17 07:47 | Gastroenterology Progress Note ---
Assessment and Plan Repeat CBC shows white count near normal Patient clinically feeling well Hemoglobin stable From GI standpoint patient can be discharged with outpatient follow-up and continued alcohol cessation Recommend avoiding heavy lifting for 2-4 weeks If persistent symptoms patient may require pseudocyst drainage however would have to wait approximately 3 more weeks before that can be safely performed - Patient Problems (1) Abdominal pain Status: Acute (2) Acute pancreatitis Status: Inactive Subjective Date of service: 05/17/21 Principal diagnosis: Abdominal pain, pancreatitis Interval history: Repeat white count much lower as anticipated Regarding patient's symptoms, he reports feeling better today was present in the room they asked a lot of questions Objective - Constitutional Vitals: Temp Pulse Resp BP Pulse Ox 98.4 F 104 H 16 137/78 94 05/17/21 03:28 05/17/21 07:35 05/17/21 07:35 05/17/21 03:28 05/17/21 07:34 General appearance: no acute distress - EENT Eyes: EOM intact ENT: hearing intact - Neck Neck: supple - Respiratory Respiratory effort: normal - Gastrointestinal General gastrointestinal: Present: non-tender, other (Mild tenderness to palpation) - Labs CBC & Chem 7: 05/17/21 04:02 05/17/21 04:02 Labs: Laboratory Results - last 24 hr 05/16/21 05/16/21 05/16/21 11:02 11:56 11:56 WBC 12.4 H RBC 3.92 Hgb 11.9 Hct 37.0 MCV 94 MCH 31 MCHC 32 RDW 13.9 Plt Count 531 H Lymph % (Auto) 11.7 L [place] % (Auto) 7.8 H Eos % (Auto) 0.3 Baso % (Auto) 0.4 Lymph # (Auto) 1.4 [place] # (Auto) 1.0 H Eos # (Auto) 0.0 Baso # (Auto) 0.0 Seg Neutrophils % 79.8 H Seg Neutrophils # 9.9 H Sodium Potassium Chloride Carbon Dioxide Anion Gap BUN Creatinine Estimated GFR BUN/Creatinine Ratio Glucose Calcium Total Bilirubin AST ALT Alkaline Phosphatase Total Protein Albumin Albumin/Globulin Ratio Urine Color Yellow Urine Turbidity Clear Urine pH 5.0 Ur Specific [place] 1.020 Urine Protein 100 mg/dl Urine Glucose (UA) Negative Urine Ketones Trace Urine Nitrite Negative Ur Reducing Substances Not Reportable Urine Bilirubin Negative Urine Ictotest Not Reportable Urine Urobilinogen < 2.0 Ur Leukocyte Esterase Negative Urine WBC (Auto) 1.0 Urine RBC (Auto) 1.0 Urine Mucus Few Urine Opiates Screen Negative Urine Methadone Screen Negative Ur Barbiturates Screen Negative Ur Phencyclidine Scrn Negative Ur Amphetamines Screen Negative U Benzodiazepines Scrn Negative Urine Cocaine Screen Negative U Marijuana (THC) Screen Negative Drugs of Abuse Note Disclamer 05/17/21 05/17/21 04:02 04:02 WBC 11.1 H RBC 3.59 L Hgb 11.0 L Hct 34.0 L MCV 95 H MCH 31 MCHC 32 RDW 13.9 Plt Count 406 Lymph % (Auto) 12.3 L [place] % (Auto) 8.7 H Eos % (Auto) 1.6 Baso % (Auto) 0.3 Lymph # (Auto) 1.4 [place] # (Auto) 1.0 H Eos # (Auto) 0.2 Baso # (Auto) 0.0 Seg Neutrophils % 77.1 H Seg Neutrophils # 8.5 H Sodium 140 Potassium 4.1 D Chloride 102.0 Carbon Dioxide 24 Anion Gap 18 BUN 18 Creatinine 1.3 Estimated GFR > 60 BUN/Creatinine Ratio 14 Glucose 94 Calcium 9.0 Total Bilirubin 0.60 AST 15 ALT 13 Alkaline Phosphatase 109 Total Protein 6.8 Albumin 3.3 L Albumin/Globulin Ratio 0.9 Urine Color Urine Turbidity Urine pH Ur Specific [place] Urine Protein Urine Glucose (UA) Urine Ketones Urine Nitrite Ur Reducing Substances Urine Bilirubin Urine Ictotest Urine Urobilinogen Ur Leukocyte Esterase Urine WBC (Auto) Urine RBC (Auto) Urine Mucus Urine Opiates Screen Urine Methadone Screen Ur Barbiturates Screen Ur Phencyclidine Scrn Ur Amphetamines Screen U Benzodiazepines Scrn Urine Cocaine Screen U Marijuana (THC) Screen Drugs of Abuse Note
[2021-05-17] MEDS: FAMOTIDINE 20 MG/2 ML INJ IV SCH (09:00)
[2021-05-17] MEDS ORDERED: amLODIPine 5 MG TAB PO SCH (10:00)
[2021-05-17] MEDS ORDERED: FOLIC ACID 1 MG TAB PO SCH (10:00)
[2021-05-17 11:30] VITALS: BP 129/79
--- NOTE | 2021-05-17 13:56 | Discharge Summary ---
Providers - Providers Date of Admission: 05/16/21 05:09 Date of discharge: 05/17/21 Attending physician: LATISHA BANDA 05/16/21 04:52 Consult to Physician [CONS] Stat Comment: Dr. Jung spoke with Dr. Antoine @ 0450 Consulting Provider: ANIL ANTOINE Physician Instructions: Reason For Exam: Acute pancreatitis with pseudocyst 05/16/21 09:08 Consult to Physician [CONS] Routine Comment: Consulting Provider: ISAIAH RAYMOND Physician Instructions: Reason For Exam: pancreatitis with pseudocyst Primary care physician: GORDY DUEÑAS Hospitalization Condition: Stable Pertinent studies: CT abdomen and pelvis; possible acute pancreatitis moderately large loculated fluid collection compatible with pseudocyst hematoma or sequelae of hemorrhagic pancreatitis could be considered given intermediate attenuation within Wall thickening the second portion of the duodenum is likely reflect sequelae of adjacent pancreatitis Ill-defined region of hypoattenuation within the pancreatic head and uncinate process may reflect additional inflammatory change. Hospital course: 35-year-old male with recent history of pancreatitis and alcohol abuse was brought to the emergency room because of abdominal pain. Patient complaining of epigastric pain 10/10 with radiation to the back. Patient describes his pain as sharp. He stated that he has some nausea but no vomiting. The patient denied any fever or chills. No chest pain or shortness of breath. Labs reviewed and showed a leukocytosis of 34,000. CT abdomen and pelvis with IV contrast showed pancreatitis with pseudocyst. case discussed the patient with Dr. Antoine will see the patient. We also put the patient on Zosyn 4.5 g IV every 8 hours and banana bag. Patient was placed n.p.o., evaluated by surgeon Dr. Antoine, no evidence of pseudocyst or infection no surgical intervention, evaluated by GI Dr. Raymond who initially managed conservatively with empiric antibiotics IV fluids pain medications and supportive care, patient symptoms significantly improved today GI reevaluated And feels that patient does not have any infection advised to discharge with some pain medications and follow-up in the office for further evaluation and management Patient was started on soft diet advised to advance the diet as tolerated Patient strongly advised to quit alcohol intake[however patient denies using alcohol recently] Today patient is comfortable, no new complaints, vital signs stable Physical examination prior to discharge is unremarkable Cleared by consultants for discharge and follow-up per schedule Patient is stable at discharge Discharge diagnosis: -- Acute pancreatitis Status: Acute Placed n.p.o., supportive care, evaluated by GI and surgery No surgical indication, IV fluids, antiemetics, Pepcid, pain medications Symptoms resolved, start on mechanical soft diet -- Abdominal pain Significantly improved acute pancreatitis/[GI and surgeon feels no infected pseudocyst pancreas Continue IV fluids, n.p.o. status, IV antibiotics and pain medications Follow GI and surgery evaluation and recommendations Protonix 40 mg p.o. daily --History of chronic alcohol abuse IV fluids, thiamine and folic acid Patient denies using alcohol recently Reports that he quit alcohol intake --Leukocytosis; Secondary to acute pancreatitis, possible sepsis No evidence of infection, cultures negative to date, leukocytosis resolved. Antibiotics DC'd -Infected pseudocyst of pancreas Patient received empiric antibiotics GI and surgery feel that there is no evidence of infection And WBC came back to normal level, antibiotics DC Only supportive care -- DVT prophylaxis; SCD for DVT prophylaxis. Cleared by surgeon and GI for discharge Follow-up for further evaluation management Stable at discharge Disposition: 01 HOME / SELF CARE / HOMELESS Final Discharge Diagnosis (Prints w/discharge instructions): Acute pancreatitis improved. abdominal pain improved. History of chronic alcohol use/patient quit alcohol intake. Possible infected pseudocyst/surgeon and GI evaluated feel there is no evidence of infected pseudocyst. Leukocytosis resolved WBC 11.1 today. Mild protein calorie malnutrition, albumin 3.3 Time spent for discharge: 35 min Core Measure Documentation - Palliative Care Palliative Care/ Comfort Measures: Not Applicable - Core Measures Any of the following diagnoses?: none Exam - Constitutional Vitals: Temp Pulse Resp BP Pulse Ox 98.2 F 104 H 17 129/79 94 05/17/21 11:09 05/17/21 11:09 05/17/21 11:09 05/17/21 11:09 05/17/21 11:09 General appearance: Present: no acute distress, well-nourished - EENT Eyes: Present: PERRL, EOM intact - Neck Neck: Present: supple, normal ROM - Respiratory Respiratory effort: normal Respiratory: bilateral: diminished, negative: rales, rhonchi, wheezing - Cardiovascular Rhythm: regular Heart Sounds: Present: S1 & S2 - Extremities Extremities: no ischemia, No edema - Abdominal General gastrointestinal: Present: soft, non-tender, non-distended, normal bowel sounds - Integumentary Integumentary: Present: clear, warm - Musculoskeletal Musculoskeletal: strength equal bilaterally, generalized weakness - Psychiatric Psychiatric: appropriate mood/affect, cooperative - Neurologic Neurologic: CNII-XII intact, moves all extremities Plan Activity: advance as tolerated Diet: other (Soft diet advance as tolerated) Additional Instructions: Soft diet, advance as tolerated. Advised to quit alcohol intake. Follow primary care physician in 3 to 4 days after discharge. Follow GI in 1 to 2 weeks. If you have worsening symptoms contact MD or go to the nearest emergency room as needed Follow up with: GORDY DUEÑAS MD [Primary Care Provider] - 7 Days ISAIAH RAYMOND MD [Staff Physician] - 14 Days Prescriptions: amLODIPine 5 mg PO DAILY #30 Folic Acid 1 mg PO QDAY #30 oxyCODONE /ACETAMINOPHEN [Percocet 5/325] 1 tab PO BID PRN #10 PRN Reason: Pain , Severe (7-10) Pantoprazole Sodium [Protonix] 40 mg PO DAILY #30
== END 2021-05-17 15:48 | disposition home or self-care (01) | DRG 439 ==
LOC: ED 00:46 → 4A 05:09
PROVIDERS: ADMIT Hospitalist; ATTEND Internal Medicine
DX: K85.90 Acute pancreatitis without necrosis or infection, unspecified (principal); K86.3 Pseudocyst of pancreas; E44.1 Mild protein-calorie malnutrition; I10 Essential (primary) hypertension; F10.10 Alcohol abuse, uncomplicated; D72.829 Elevated white blood cell count, unspecified; Z68.26 Body mass index [BMI] 26.0-26.9, adult
CPT/HCPCS: 36415; 74177; 80048; 80053; 80076; 80307; 80320; 81001; 83690; 85007; 85025; 87040; 94640; 94760; G0378; J3490; J7070; Q0162; C9113; G0480; J1170; J2270; J2405; J2543; J3010; J3411; J7030; Q9967